=== PATIENT | female | born 1980 | race Hispanic/Latino ===

== ENCOUNTER → 2017-12-15 10:18 | Outpatient (CLI) | payer OTHER, SELFPAY ==
[2017-12-15 11:33] LABS: Cholesterol 139 mg/dL (140-199); HDL Cholesterol 57 mg/dL (40-60); LDL Cholesterol Calculated 69 mg/dL (<100); Triglycerides 64 mg/dL (35-150)
== END ==
PROVIDERS: PCP Internal Medicine; Visit Provider Internal Medicine
DX: R79.0 Abnormal level of blood mineral (principal); Z13.220 Encounter for screening for lipoid disorders
CPT/HCPCS: 36415; 80061; 82728

== ENCOUNTER → 2018-01-28 12:21 | Outpatient (CLI) | payer OTHER, SELFPAY ==
[2018-02-01 13:46] LABS: QuantiFERON TB Negative (Negative)
== END ==
PROVIDERS: PCP Internal Medicine; Visit Provider Internal Medicine
DX: R76.11 Nonspecific reaction to tuberculin skin test without active tuberculosis (principal)
CPT/HCPCS: 36415; 86480

== ENCOUNTER → 2018-04-10 08:49 | Outpatient (REF) | payer OTHER, SELFPAY ==
[2018-04-10 09:07] LABS: Urine Amphetamines Negative (Negative); Urine Barbiturates Negative (Negative); Urine Benzodiazepines Negative (Negative); Urine Cocaine Negative (Negative); Urine MDMA Negative (Negative); Urine Methadone Negative (Negative); Urine Methamphetamines Negative (Negative); Urine Morphine/Opi cutoff 2000 Negative (Negative); Urine Oxycodone Negative (Negative); Urine Phencyclidine Negative (Negative); Urine Tetrahydrocannabinol Negative (Negative); Urine Tricyclic Antidepressant Negative (Negative)
== END ==
LOC: LAB 08:49
PROVIDERS: PCP Internal Medicine; Visit Provider Family Medicine Sleep Medicine
DX: G47.19 Other hypersomnia (principal)
CPT/HCPCS: 80305